=== PATIENT | male | born 1995 | race Caucasian/White ===

== ENCOUNTER 2018-11-16 11:09 | Emergency (ER) | payer BC, OTHER ==
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
== END 2018-11-16 11:55 | disposition home or self-care (01) ==
LOC: LB.ED 11:09
DX: S90.31XA Contusion of right foot, initial encounter (principal); W23.0XXA Caught, crushed, jammed, or pinched between moving objects, initial encounter
CPT/HCPCS: 73620-RT; 99283-25